=== PATIENT | female | born 1995 | race Caucasian/White ===

== ENCOUNTER 2018-03-27 14:06 | Emergency (ER) | payer BC ==
--- NOTE | 2018-03-27 14:23 | EDPHY ---
H & P Stated Complaint: L CP Time Seen by Provider: 03/27/18 14:16 HPI/ROS: CHIEF COMPLAINT: Left-sided chest pain HISTORY OF PRESENT ILLNESS: 22-year-old female history of contraceptives, positive tobacco smoker, complaining of 2 days of intermittent left-sided sharp stabbing pain described as occurring intermittently without follow definitive pattern, appears to be reproducible with movement of the chest and arms. She recently returned from a long road trip in a vehicle. Not associated with dyspnea. Not associated with nausea or diaphoresis. No prior history of similar. No trauma history. Denies: Recent cold or flu-like symptoms, cough, dyspnea, travel, malignancy history, immobilization, calf pain or cramping. REVIEW OF SYSTEMS: A ten point review of systems was performed and is negative with the exception of the items mentioned in the HPI PAST MEDICAL & SURGICAL HISTORY: positive for contraceptive use SOCIAL HISTORY:Nonsmoker. No drug use. No cocaine use. No IV drug use history. FAMILY HISTORY: No family history of premature coronary disease, no history of sudden unexplained PHYSICAL EXAM (Prior to examination, patient consented to physical exam, hands were washed and my usual and customary physical exam procedures followed) 1) GENERAL: Well-developed, well-nourished, alert and oriented. Appears to be in no acute distress. 2) HEAD: Normocephalic, atraumatic 3) HEENT: Pupils equal, round, reactive to light bilaterally. Sclera anicteric. Nasopharynx, oropharynx, clear, no lesions. 4) NECK: Full range of motion, no meningeal signs. No adenopathy. No carotid bruit. 5) LUNGS: Clear auscultation bilaterally, no wheezes, no rhonchi, no retractions. 6) HEART: Regular rate and rhythm, no murmur, no heave, no gallop. No bruit 7) ABDOMEN: No guarding, no rebound, no focal tenderness, negative McBurney's, 8) MUSCULOSKELETAL: Moving all extremities, no focal areas of tenderness, no obvious trauma. No peripheral edema or discoloration. Negative Homans no palpable cord. 9) BACK: No CVA tenderness, no midline vertebral tenderness, no fluctuance, no step-off, no obvious trauma, no visual or palpable abnormality. 10) SKIN: No rash, no petechiae. 11) Psychiatric: Patient is oriented X 3, there is no agitation. DIFFERENTIAL DIAGNOSIS: In no particular order, including but not limited to myocardial ischemia, pulmonary embolus, chest wall pain, pleural inflammation and pulmonary infectious causes. - Personal History LMP (Females 10-55): 22-28 Days Ago Current Tetanus/Diphtheria Vaccine: Yes Current Tetanus Diphtheria and Acellular Pertussis (TDAP): Yes - Medical/Surgical History Hx Asthma: No Hx Chronic Respiratory Disease: No Hx Diabetes: No Hx Cardiac Disease: No Hx Renal Disease: No Hx Cirrhosis: No Hx Alcoholism: No Hx HIV/AIDS: No Hx Splenectomy or Spleen Trauma: No Other PMH: denies - Social History Smoking Status: Current some day smoker Constitutional: Initial Vital Signs Temperature (C) 36.9 C 03/27/18 14:12 Heart Rate 78 03/27/18 14:12 Respiratory Rate 16 03/27/18 14:12 Blood Pressure 132/82 H 03/27/18 14:12 O2 Sat (%) 95 03/27/18 14:12 O2 Delivery Mode Room Air Allergies/Adverse Reactions: No Known Allergies Allergy (Unverified 03/27/18 14:11) Home Medications: Medication Instructions Recorded Control 03/27/18 Medical Decision Making - Diagnostics Imaging Results: Imaging Impressions Chest X-Ray 03/27/18 14:30 Impression: Normal chest x-ray. ED Course/Re-evaluation: 2:30 p.m.: Will obtain diagnostic studies including chest x-ray, D-dimer. 3:26 p.m.: Re-evaluation. Discussed with the patient her laboratory and diagnostic studies which include negative troponin, negative D-dimer, negative EKG and chest x-ray. I think that negative D-dimer in this patient adequately excludes pulmonary embolus in this patient whom I have a moderate pretest suspicion. I think that cardiac etiology such as NH is less than likely in speech as well given her low risk, negative EKG and troponin in presence of symptoms for greater than 8 hr. She has no evidence of pneumothorax or hemothorax or pulmonary infectious etiology on chest x-ray She does describe pain which is intermittently reproducible with movement. We discussed more than likely chest wall etiology. We discussed NSAIDs. Usual and customary NSAID precautions instructions provided. Care of patient under supervision of primary Supervising physician Dr Flores - Data Points Laboratory Results: Laboratory Results 03/27/18 14:32 03/27/18 14:32 03/27/18 03/27/18 03/27/18 14:32 14:32 14:32 WBC RBC Hgb Hct MCV MCH MCHC RDW Plt Count MPV Neut % (Auto) Lymph % (Auto) Grand % (Auto) Eos % (Auto) Baso % (Auto) Nucleat RBC Rel Count Absolute Neuts (auto) Absolute Lymphs (auto) Absolute Monos (auto) Absolute Eos (auto) Absolute Basos (auto) Absolute Nucleated RBC Immature Gran % Immature Gran # D-Dimer < 0.27 ug/mLFEU ug/mLFEU (0.00-0.50) Sodium 140 mEq/L mEq/L (135-145) Potassium 4.2 mEq/L mEq/L (3.5-5.2) Chloride 106 mEq/L mEq/L (97-110) Carbon Dioxide 24 mEq/l mEq/l (22-31) Anion Gap 10 mEq/L mEq/L (8-16) BUN 16 mg/dL mg/dL (7-23) Creatinine 0.9 mg/dL mg/dL (0.6-1.0) Estimated GFR > 60 Glucose 82 mg/dL mg/dL (70-100) Calcium 9.4 mg/dL mg/dL (8.5-10.4) Troponin I < 0.012 ng/mL ng/mL (0.000-0.034) Beta HCG, Qual NEGATIVE 03/27/18 14:32 WBC 9.17 10^3/uL 10^3/uL (3.80-9.50) RBC 5.54 10^6/uL H 10^6/uL (4.18-5.33) Hgb 15.4 g/dL g/dL (12.6-16.3) Hct 45.8 % % (38.0-47.0) MCV 82.7 fL fL (81.5-99.8) MCH 27.8 pg L pg (27.9-34.1) MCHC 33.6 g/dL g/dL (32.4-36.7) RDW 13.1 % % (11.5-15.2) Plt Count 300 10^3/uL 10^3/uL (150-400) MPV 9.7 fL fL (8.7-11.7) Neut % (Auto) 68.7 % % (39.3-74.2) Lymph % (Auto) 23.6 % % (15.0-45.0) Grand % (Auto) 6.2 % % (4.5-13.0) Eos % (Auto) 1.0 % % (0.6-7.6) Baso % (Auto) 0.2 % L % (0.3-1.7) Nucleat RBC Rel Count 0.0 % % (0.0-0.2) Absolute Neuts (auto) 6.30 10^3/uL 10^3/uL (1.70-6.50) Absolute Lymphs (auto) 2.16 10^3/uL 10^3/uL (1.00-3.00) Absolute Monos (auto) 0.57 10^3/uL 10^3/uL (0.30-0.80) Absolute Eos (auto) 0.09 10^3/uL 10^3/uL (0.03-0.40) Absolute Basos (auto) 0.02 10^3/uL 10^3/uL (0.02-0.10) Absolute Nucleated RBC 0.00 10^3/uL 10^3/uL (0-0.01) Immature Gran % 0.3 % % (0.0-1.1) Immature Gran # 0.03 10^3/uL 10^3/uL (0.00-0.10) D-Dimer Sodium Potassium Chloride Carbon Dioxide Anion Gap BUN Creatinine Estimated GFR Glucose Calcium Troponin I Beta HCG, Qual Departure - Departure Disposition: Home, Routine, Self-Care Clinical Impression: Chest wall pain Condition: Good Instructions: Chest Pain (ED) Additional Instructions: Seek medical attention if you develop new or worsening chest pain, if you develop new or worsening shortness of breath, or any other symptoms that concern you. Referrals: Araceli Alonzo MD [Primary Care Provider] - 1-2 days without fail
--- NOTE | 2018-03-27 14:25 | CPEKG ---
Heart Rate: 80 RR Interval: 750 P-R Interval: 156 QRSD Interval: 88 QT Interval: 396 QTC Interval: 457 P [place]: 39 QRS [place]: 54 T Wave [place]: 33 EKG Severity - NORMAL ECG - EKG Impression: SINUS RHYTHM Electronically Signed By: Beto Negrete 28-Mar-2018 15:47:16
[2018-03-27 14:43] LABS: PLATELET COUNT 300 10^3/uL (150-400)
[2018-03-27 15:43] VITALS: BP 116/81
== END 2018-03-27 15:50 | disposition home or self-care (01) ==
DX: R07.89 Other chest pain (principal); F17.200 Nicotine dependence, unspecified, uncomplicated